=== PATIENT | female | born 1985 | race Two or more races ===

== ENCOUNTER 2022-08-25 08:03 | Emergency (ER) | payer OTHER ==
[~2022-08-25] VITALS: Ht 157.5 cm; Wt 83.5 kg
[~2022-08-25 08:03] MED LIST: AMBIEN10 MG PO; FLOVENT HFA10.6 GM; PROAIR RESPICL90 MCG IH; WELLBUTRIN SR100 MG
== END 2022-08-25 12:47 | disposition home or self-care (01) ==
LOC: ER 08:03
DX: J03.90 Acute tonsillitis, unspecified (principal); R51.9 Headache, unspecified; Z20.822 Contact with and (suspected) exposure to COVID-19

== ENCOUNTER → 2022-10-18 | Emergency (ER) | payer OTHER ==
[~2022-10-18] VITALS: Ht 157.5 cm; Wt 128.8 kg
== END | disposition home or self-care (01) ==
LOC: ER 15:44
DX: N39.0 Urinary tract infection, site not specified (principal)

== ENCOUNTER 2023-04-29 14:12 | Emergency (ER) | payer OTHER ==
[~2023-04-29] VITALS: Ht 157.5 cm; Wt 131.5 kg
[2023-04-29] MEDS ORDERED: BACTRIM DS TAB1 EACH PO (20:05)
== END 2023-04-29 20:20 | disposition home or self-care (01) ==
LOC: ER 14:12
PROVIDERS: General Practice
DX: N39.0 Urinary tract infection, site not specified (principal)

== ENCOUNTER 2023-08-17 08:32 | Emergency (ER) | payer OTHER ==
[~2023-08-17] VITALS: Ht 157.5 cm; Wt 86.2 kg
[~2023-08-17 08:32] MED LIST changes: +BACTRIM DS TAB1 EACH PO
[2023-08-17] MEDS ORDERED: EFFEXOR XR150 MG PO (08:53)
[2023-08-17] MEDS ORDERED: WELLBUTRIN SR100 MG PO (08:53)
[2023-08-17] MEDS ORDERED: ATIVAN1 M1 PO (08:53)
[2023-08-17] MEDS ORDERED: SEROQUEL200 MG PO (08:54)
[2023-08-17 10:02] LABS: HEMATOCRIT 36.9 % (36.0-45.00); HEMOGLOBIN 12.5 g/dL (12.0-15.00); MEAN CELL VOLUME 94.9 fL (80.00-100.00); MEAN CORPUSCULAR HEMOGLOBIN 32.2 pg (27.00-32.0); MEAN CORPUSCULAR HGB CONC 33.9 g/dl (32.0-36.0); PLATELET COUNT 316 K/uL (150-450); RED BLOOD COUNT 3.89 M/uL (4.00-6.00); RED CELL DISTRIBUTION WIDTH 13.1 % (11.5-14.5)
[2023-08-17 10:32] LABS: ALBUMIN 3.8 gm/dL (3.4-5.0); BILIRUBIN TOTAL 0.4 mg/dL (0.3-1.2); CALCIUM 8.6 mg/dL (8.5-10.1); CREATININE SERUM 0.63 mg/dL (0.55-1.02); GFR 107.54; POTASSIUM 4.1 mEq/L (3.5-5.1); TOTAL PROTEIN 7.8 gm/dL (6.4-8.2)
[2023-08-17] MEDS ORDERED: PEPCID AC20 MG PO (12:00)
[2023-08-17] MEDS ORDERED: ONDANSETRON ODT8 MG PO (12:00)
== END 2023-08-17 12:40 | disposition home or self-care (01) ==
LOC: ER 08:32
PROVIDERS: General Practice
DX: K52.89 Other specified noninfective gastroenteritis and colitis (principal); R11.2 Nausea with vomiting, unspecified; Z20.822 Contact with and (suspected) exposure to COVID-19

== ENCOUNTER → 2025-03-01 | Emergency (ER) | payer OTHER ==
[~2025-03-01] VITALS: Ht 157.5 cm; Wt 77.1 kg
[~2025-03-01] MED LIST changes: +ATIVAN1 M1 PO; +EFFEXOR XR150 MG PO; +KETOROLAC TROMETHAMINE 30 MG VIAL IM STA; +ONDANSETRON ODT8 MG PO; +PEPCID AC20 MG PO; +SEROQUEL200 MG PO; +WELLBUTRIN SR100 MG PO
[2025-03-01 10:05] LABS: COVID-19 AG NEGATIVE (NEGATIVE)
[2025-03-01 10:39] VITALS: BP 107/64; O2SAT 98
== END | disposition home or self-care (01) ==
LOC: ER 07:05
PROVIDERS: General Practice
DX: J10.1 Influenza due to other identified influenza virus with other respiratory manifestations (principal); Z20.822 Contact with and (suspected) exposure to COVID-19